=== PATIENT | female | born 1980 | race African-American/Black ===

== ENCOUNTER 2017-08-17 12:58 | Emergency (ER) | payer MEDICAID, OTHER ==
[~2017-08-17] VITALS: Ht 154.9 cm; Wt 48.1 kg
[2017-08-17 13:37] VITALS: BP 112/74
--- NOTE | 2017-08-17 15:18 | NUR ---
patient ambulated to er bed 3
[2017-08-17 15:28] LABS: BASOPHILS # (AUTO) 0.4 K/uL (0.00-0.22); EOSINOPHILS # (AUTO) 0.3 K/uL (0-0.4); HEMATOCRIT 36.7 % (36-48); HEMOGLOBIN 12.6 g/dL (12.0-16.0); LYMPHOCYTES # (AUTO) 2.4 K/uL (2.5-16.5); MEAN CORPUSCULAR HEMOGLOBIN 31 pg (27-31); MEAN CORPUSCULAR HGB CONC 34 g/dL (33-37); MEAN CORPUSCULAR VOLUME 90 fL (80-94); MONOCYTES # (AUTO) 0.7 K/uL (0.8-1.0); NEUTROPHILS # (AUTO) 5.7 K/uL (1.8-7.7); PLATELET COUNT (AUTO) 444 K/uL (140-450); RED BLOOD CELL COUNT(AUTO) 4.09 MIL/uL (4.20-5.40); RED CELL DISTRIBUTION WIDTH 13.7 % (11.6-13.7); WHITE BLOOD COUNT (AUTO) 9.5 K/uL (4.8-10.8)
--- NOTE | 2017-08-17 15:30 | NUR ---
37/F BIB MOM C/O UNABLE TO MOVE FINGERS OR HANDS [id number] WITH WORSENING. MOM STS PT INCARCERATED, RECENTLY GOT OUT 1WK AGO. ALSO C/O JOINT PAIN. PAIN 10/10 ACHING NON-RADIATING. ERMD NOTIFIED OF PATIENT STATUS.
[2017-08-17 15:46] LABS: ALBUMIN 3.8 g/dL (3.4-5.0); ANION GAP 14.1 (8-16); CARBON DIOXIDE 27.9 mmol/L (21-32); CREATININE 0.8 mg/dL (0.6-1.3); TOTAL BILIRUBIN 0.2 mg/dL (0.0-1.0)
--- NOTE | 2017-08-17 16:03 | NUR ---
Patient being evaluated by physician at bedside.
[2017-08-17] MEDS ORDERED: LORazepam 2 MG/ML VIAL IVP ONE (16:10)
--- NOTE | 2017-08-17 16:37 | NUR ---
PT TAKEN TO CT VIA GURKVNG WITH EXCAVATION LABORER.
[2017-08-17 16:41] LABS: BILIRUBIN,URINE NEGATIVE (NEGATIVE); BLOOD, URINE TRACE-I (NEGATIVE); LEUKOCYTE ESTERASE ,URINE 2+ (NEGATIVE); NITRITE, URINE NEGATIVE (NEGATIVE); PH,URINE 5.5 (5.0-9.0); UGLUCOSE NEGATIVE (NEGATIVE)
[2017-08-17 16:45] LABS: APPEARANCE,URINE CLOUDY (CLEAR); COLOR,URINE STRAW (YELLOW)
[2017-08-17 16:50] LABS: BARBITURATE, URINE POS. ng/ml (NEG <=200); BENZODIAZEPINE, URINE NEG. ng/mL (NEG <=200); CANNABINOID, URINE NEG. ng/mL (NEG <=50); COCAINE, URINE NEG. ng/mL (NEG <=300); OPIATE, URINE NEG. ng/mL (NEG <=2000); PHENCYCLIDINE SCREEN,URINE NEG. ng/mL (NEG <=25)
--- NOTE | 2017-08-17 16:50 | NUR ---
PT RETURNED TO ROOM VIA GURNEY FROM CT.
[2017-08-17 16:54] LABS: ACETAMINOPHEN < 0.5 ug/ml (10-30); SALICYLATE < 2.8 mg/dL (2.8-20.0)
[2017-08-17 17:06] LABS: RBC,URINE 0-5 (RARE) /HPF (0-5)
--- NOTE | 2017-08-17 17:48 | NUR ---
PT RESTING. VSS; PATIENT POSITIONED FOR COMFORT; HOB ELEVATED; BEDRAILS UP X2; BED DOWN. ER MD MADE AWARE OF PT STATUS.
--- NOTE | 2017-08-17 19:01 | NUR ---
REPORT RECIEVED FROM MICHELL
--- NOTE | 2017-08-17 19:15 | NUR ---
Pupils equal and reactive to light bilaterally. No facial droop noted. No smile deficit noted. Speech normal for patient. Patient is alert and oriented to person, place, time and event. Bilateral hand pt escort equal. Bilateral foot push equal.
--- NOTE | 2017-08-17 19:44 | NUR ---
Patient discharged with v/s stable. Written and verbal after care instructions given and explained. Patient alert, oriented and verbalized understanding of instructions. Ambulatory with steady gait. All questions addressed prior to discharge. ID band removed. Patient advised to follow up with PMD. Rx of VISTARIL 25MG TID, LEVAQUIN 250MG DAILY given. Patient educated on indication of medication including possible reaction and side effects. Opportunity to ask questions provided and answered.
[2017-08-17 19:47] VITALS: BP 102/69
--- NOTE | 2017-08-19 15:25 | NUR ---
ADDENDUM: URINE CULTURE RESULTS. POSITIVE E.COLI,ESBL,MDRO. DR. MC MADE AWARE. CALLED PATIENT [phone]. NOT AVAIL. LEFT MESSAGE TO SISTER LOLI TO CALL BACK IN ER FOR URINE RESULTS NEED TO RETURN TO ER.
== END 2017-08-17 19:44 | disposition home or self-care (01) ==
LOC: MED 12:58
DX: N39.0 Urinary tract infection, site not specified (principal); F41.9 Anxiety disorder, unspecified
CPT/HCPCS: 36415; 70450; 71045; 80053; 80305; 81001; 81025; 82550; 84484; 85025; 87086; 87186; 96374; 99285; G0480; G0482; J2060; Q0092

== ENCOUNTER 2017-08-29 07:59 | Emergency (ER) | payer MEDICAID ==
[~2017-08-29] VITALS: Ht 160 cm; Wt 47.6 kg
[2017-08-29 08:05] VITALS: BP 133/86
--- NOTE | 2017-08-29 08:10 | NUR ---
PATIENT ADRIANE FOUND DOWN ON THE GROUND AT A [place], PER EMS PATIENT WAS REPORTED HAVING SHAKINESS AND ASSISTED TO THE GROUND; NO SIGNS OF SEIZURE ACTIVITY; NO POSTICTAL; PT HAS BEEN SEEN FOR SEVERAL EPISODES OF SHAKINESS AT [place] THE LAST 3-4 WEEKS; C/O GENERALIZED BODY PAIN. HX SEIZURE, ANXIETY . AAOX4, DELAYED SPEECH NOTED, UNABLE TO MOVE ALL EXTREMITIES NOTED, LUNGS CLEAR BL; HR EVEN AND REGULAR; PT DENIES ANY FEVER, CP, SOB, OR COUGH AT THIS TIME; DENIES N/V/D; SKIN IS PINK/WARM/DRY; VSS; PATIENT POSITIONED FOR COMFORT; HOB ELEVATED; BEDRAILS UP X2; BED DOWN. ER MD MADE AWARE OF PT STATUS.
--- NOTE | 2017-08-29 08:11 | NUR ---
ED MD EVALUATED PT AT BEDSIDE.
[2017-08-29] MEDS ORDERED: NACL 0.9% 1,000 ML IV ONE (08:25)
[2017-08-29] MEDS ORDERED: LORazepam 2 MG/ML VIAL IVP ONE (08:25)
[2017-08-29 09:11] LABS: HEMATOCRIT 40.4 % (36-48); HEMOGLOBIN 13.5 g/dL (12.0-16.0); MEAN CORPUSCULAR HEMOGLOBIN 30 pg (27-31); MEAN CORPUSCULAR HGB CONC 33 g/dL (33-37); MEAN CORPUSCULAR VOLUME 91 fL (80-94); PLATELET COUNT (AUTO) 365 K/uL (140-450); RED BLOOD CELL COUNT(AUTO) 4.43 MIL/uL (4.20-5.40); RED CELL DISTRIBUTION WIDTH 14.7 % (11.6-13.7); WHITE BLOOD COUNT (AUTO) 5.7 K/uL (4.8-10.8)
[2017-08-29 09:12] LABS: BASOPHILS % (AUTO) 0.4 % (0.0-2.0); EOSINOPHILS # (AUTO) 0.1 K/uL (0-0.4); EOSINOPHILS % (AUTO) 2.4 % (0.0-4.0); LYMPHOCYTES # (AUTO) 1.3 K/uL (2.5-16.5); MONOCYTES # (AUTO) 0.3 K/uL (0.8-1.0); MONOCYTES % (AUTO) 5.8 % (1.7-9.3); NEUTROPHILS # (AUTO) 3.9 K/uL (1.8-7.7); NEUTROPHILS % (AUTO) 68.4 % (42.2-75.2)
[2017-08-29 10:18] LABS: ANION GAP 14.4 (8-16); CHLORIDE 106 mmol/L (98-107); CREATININE 0.7 mg/dL (0.6-1.3); GFR ARICAN-AMERICAN 120 mL/min (>90); GLUCOSE 122 mg/dL (74-106); POTASSIUM 4.4 mmol/L (3.5-5.1); SODIUM SERUM 142 mmol/L (136-145); UREA NITROGEN, BLOOD 7 mg/dL (7-18)
--- NOTE | 2017-08-29 10:30 | NUR ---
PT IS RESTING IN BED, STILL COULD NOT MOVE ALL EXTREMITIES, NO S/S OF DISTRESS, VSS.
[2017-08-29 10:41] LABS: ASPARTATE AMINOTRANSFERASE 13 U/L (15-37); TOTAL BILIRUBIN 0.7 mg/dL (0.0-1.0)
[2017-08-29 10:46] LABS: ACETAMINOPHEN < 0.5 ug/ml (10-30); SALICYLATE < 2.8 mg/dL (2.8-20.0)
--- NOTE | 2017-08-29 12:30 | NUR ---
PT ABLE TO EAT LUNCH BY SELF AT THIS TIME, NO S/S OF DISTRESS, VSS.
[2017-08-29 14:30] VITALS: BP 107/73
--- NOTE | 2017-08-29 14:30 | NUR ---
Patient discharged with v/s stable. Written and verbal after care instructions given and explained. Patient alert, oriented and verbalized understanding of instructions. Wheel Chair Assisted with steady gait. All questions addressed prior to discharge. ID band removed. Patient advised to follow up with PMD. Rx of VISTARIL given. Patient educated on indication of medication including possible reaction and side effects. Opportunity to ask questions provided and answered.
[2017-08-29 17:58] LABS: BILIRUBIN,URINE NEGATIVE (NEGATIVE); BLOOD, URINE NEGATIVE (NEGATIVE); LEUKOCYTE ESTERASE ,URINE NEGATIVE (NEGATIVE); NITRITE, URINE NEGATIVE (NEGATIVE); UGLUCOSE NEGATIVE (NEGATIVE)
[2017-08-29 18:15] LABS: APPEARANCE,URINE CLEAR (CLEAR); COLOR,URINE YELLOW (YELLOW)
[2017-08-29 19:47] LABS: BARBITURATE, URINE NEG. ng/ml (NEG <=200); BENZODIAZEPINE, URINE NEG. ng/mL (NEG <=200); CANNABINOID, URINE NEG. ng/mL (NEG <=50); COCAINE, URINE NEG. ng/mL (NEG <=300); OPIATE, URINE NEG. ng/mL (NEG <=2000); PHENCYCLIDINE SCREEN,URINE NEG. ng/mL (NEG <=25)
[2017-09-04] MEDS ORDERED: KEP500 PO (11:16)
== END 2017-08-29 14:30 | disposition home or self-care (01) ==
LOC: MED 07:59
DX: F41.0 Panic disorder [episodic paroxysmal anxiety] (principal); R20.2 Paresthesia of skin
CPT/HCPCS: 36415; 70450; 71045; 80053; 80305; 81003; 82550; 84484; 85025; 93005; 96361; 96374; 99285; G0480; G0482; J2060; J7030; Q0092; 96372

== ENCOUNTER 2017-09-04 16:17 | Emergency (ER) | payer MEDICAID ==
[~2017-09-04] VITALS: Ht 160 cm; Wt 47.6 kg
[~2017-09-04 16:17] MED LIST: KEP500 PO
--- NOTE | 2017-09-04 16:17 | NUR ---
PT BIBA TO BED 10.
--- NOTE | 2017-09-04 16:28 | NUR ---
ER MD DR. BOWMAN EVALUATING PT AT BEDSIDE.
[2017-09-04 16:29] VITALS: BP 103/72
--- NOTE | 2017-09-04 16:30 | NUR ---
PT BROUGHT IN BY [facility]AM[facility]ICS AFTER FALLING AT URGENT CARE WHICH SHE WAS TAKEN TO BY HER SISTER. PT DENIES HURTING HERSELF DURING THE FALL AND STATES THAT NO PAIN IS PRESENT ANYWHERE. PTS LUNGS ARE CLEAR BILATERALLY. S1S2 HEARD. PT STATES "I HAVE NO CONTROL OVER 80% OF MY BODY. I CANT MOVE MY LEGS OR HANDS". PT IN BED WITH BOTH SIDE RALES UP AND BED IN LOWEST POSITION WELL HOB ELEVATED FOR COMFORT.
[2017-09-04] MEDS ORDERED: NACL 0.9% 1,000 ML IV ONE (16:35)
[2017-09-04 17:07] LABS: BILIRUBIN,URINE 1+ (NEGATIVE); BLOOD, URINE NEGATIVE (NEGATIVE); COLOR,URINE YELLOW (YELLOW); LEUKOCYTE ESTERASE ,URINE 1+ (NEGATIVE); NITRITE, URINE POSITIVE (NEGATIVE); UGLUCOSE NEGATIVE (NEGATIVE)
--- NOTE | 2017-09-04 17:10 | NUR ---
XRAY AT BEDSIDE.
[2017-09-04 17:12] LABS: APPEARANCE,URINE CLOUDY (CLEAR)
[2017-09-04 17:19] LABS: BARBITURATE, URINE POS. ng/ml (NEG <=200); BENZODIAZEPINE, URINE NEG. ng/mL (NEG <=200); CANNABINOID, URINE NEG. ng/mL (NEG <=50); COCAINE, URINE NEG. ng/mL (NEG <=300); OPIATE, URINE NEG. ng/mL (NEG <=2000); PHENCYCLIDINE SCREEN,URINE NEG. ng/mL (NEG <=25)
[2017-09-04 17:23] LABS: BASOPHILS # (AUTO) 0.4 K/uL (0.00-0.22); EOSINOPHILS # (AUTO) 0.3 K/uL (0-0.4); HEMATOCRIT 38.8 % (36-48); LYMPHOCYTES # (AUTO) 1.8 K/uL (2.5-16.5); MEAN CORPUSCULAR HEMOGLOBIN 30 pg (27-31); MEAN CORPUSCULAR HGB CONC 34 g/dL (33-37); MEAN CORPUSCULAR VOLUME 90 fL (80-94); MONOCYTES # (AUTO) 0.3 K/uL (0.8-1.0); NEUTROPHILS # (AUTO) 3.4 K/uL (1.8-7.7); PLATELET COUNT (AUTO) 415 K/uL (140-450); RED BLOOD CELL COUNT(AUTO) 4.32 MIL/uL (4.20-5.40); RED CELL DISTRIBUTION WIDTH 13.8 % (11.6-13.7); WHITE BLOOD COUNT (AUTO) 6.2 K/uL (4.8-10.8)
[2017-09-04 17:30] LABS: ANION GAP 11.6 (8-16); CARBON DIOXIDE 28.1 mmol/L (21-32); CREATININE 0.7 mg/dL (0.6-1.3); POTASSIUM 3.7 mmol/L (3.5-5.1)
[2017-09-04 17:34] LABS: RBC,URINE NONE SEEN /HPF (0-5); WBC,URINE 20-60 /HPF (0-5)
[2017-09-04 17:36] LABS: ALBUMIN 3.7 g/dL (3.4-5.0); TOTAL BILIRUBIN 0.5 mg/dL (0.0-1.0)
--- NOTE | 2017-09-04 18:09 | NUR ---
PT APPEARS TO BE RESTING COMFORTABLY IN BED; VSS; POSITIONED FOR COMFORT; WILL CONTINUE TO MONITOR.
--- NOTE | 2017-09-04 18:36 | NUR ---
CALLED SISTER TRISHA TO PICK PT UP PT READY TO BE DISCHARGED; SISTER REQUESTED TO SPEAK WITH ER MD DR. BOWMAN; TRANSFERRED PHONE TO ER MD DR. BOWMAN AT THIS TIME.
--- NOTE | 2017-09-04 18:39 | NUR ---
PER ER MD DR. BOWMAN, SISTER TRISHA TO PICK PT UP AT 2000 AFTER WORK TODAY; PT OK TO DISCHARGE AT THIS TIME.
--- NOTE | 2017-09-04 18:40 | NUR ---
IV removed, catheter intact and site benign. Applied folded 4x4 gauze and tape to stop bleeding. PT TOLERATED PROCEDURE WELL.
[2017-09-04 18:46] VITALS: BP 107/80
--- NOTE | 2017-09-04 18:46 | NUR ---
Patient discharged with v/s stable. Written and verbal after care instructions given and explained. Patient alert, oriented and verbalized understanding of instructions. Pt ambulatory with steady gait. All questions addressed prior to discharge. ID band removed. Patient advised to follow up with PMD. Rx of CEPHALEXIN 500MG CAP given. Patient educated on indication of medication including possible reaction and side effects. Opportunity to ask questions provided and answered.
--- NOTE | 2017-09-06 13:35 | NUR ---
CALLED AND LEFT A MESSAGE FOR PATIENT TO RETURN MY CALL AND DIRECT LINE TO ER WAS GIVEN.
== END 2017-09-04 18:46 | disposition home or self-care (01) ==
LOC: MED 16:17
DX: N39.0 Urinary tract infection, site not specified (principal)
CPT/HCPCS: 36415; 71045; 80053; 80305; 81001; 81025; 82550; 82948; 84484; 85025; 87086; 87186; 93005; 96360; 99285; J7030

== ENCOUNTER 2018-09-22 16:56 | Emergency (ER) | payer BC, MEDICAID ==
[~2018-09-22] VITALS: Ht 152.4 cm; Wt 45.4 kg
[2018-09-22 17:10] VITALS: BP 117/59
--- NOTE | 2018-09-22 17:10 | NUR ---
PT BIB AMBULANCE BLS TO BED 4, REPORT TO DIONNA ARANA
--- NOTE | 2018-09-22 17:48 | NUR ---
PT BIB AMBULANCE BLS AFTER BEING FOUND IN A [place] LOT SITTING ON THE GROUND. TOLD EMS "I FEEL LIKE PASSING OUT". ON ARRIVAL PT A/OX4, BUT SPEAKING WITH FLIGHT OF IDEAS. PT REFUSED BS. HX-SCHIZOPHRENIA. DENIES N/V/D; SKIN IS BL; HR EVEN AND REGULAR; PT DENIES ANY FEVER, CP, SOB, OR COUGH AT THIS TIME; PATIENT STATES PAIN OF 0/10 AT THIS TIME. PATIENT POSITIONED FOR COMFORT; HOB ELEVATED; BEDRAILS UP X2; BED DOWN. ER MD MADE AWARE OF PT STATUS.
--- NOTE | 2018-09-22 17:58 | NUR ---
C/P LEFT LEG PAIN.
--- NOTE | 2018-09-22 18:24 | NUR ---
Patient being evaluated by DR KELLY at bedside.
--- NOTE | 2018-09-22 19:07 | NUR ---
Patient being evaluated by DR DR CURRY at bedside.
--- NOTE | 2018-09-22 19:15 | NUR ---
Pt report given to SAMY KIRKLAND. Transfer of care at this time.
[2018-09-22 19:40] VITALS: BP 123/83
--- NOTE | 2018-09-22 19:40 | NUR ---
Patient discharged with v/s stable. Written and verbal after care instructions given and explained. Patient verbalized understanding. Ambulatory with steady gait. All questions addressed prior to discharge. Advised to follow up with PMD. Given list of available shelters in surrounding areas.
== END 2018-09-22 19:40 | disposition home or self-care (01) ==
LOC: MED 16:56
DX: R53.1 Weakness (principal); F20.9 Schizophrenia, unspecified; Z79.899 Other long term (current) drug therapy
CPT/HCPCS: 99283